=== PATIENT | male | born 1990 | race Caucasian/White ===

== ENCOUNTER 2019-12-04 23:41 | Emergency (ER) | payer SELFPAY ==
[2019-12-04 23:40] VITALS: BP 146/91; PULSE 85; RESP 25; TEMP 37.3; O2SAT 96
--- NOTE | 2019-12-04 23:43 | ED.OVERDOSE ---
HPI - Overdose General Chief Complaint: Overdose Stated Complaint: UNRESPONSIVE Time Seen by Provider: 12/04/19 23:43 Source: patient and EMS Mode of arrival: EMS Limitations: clinical condition History of Present Illness HPI Narrative: Patient is a 29-year-old male who presented via EMS for possible overdose. EMS was called by [facility]dem[facility] for patient who was unresponsive at a hotel. EMS arrived on scene to [facility] where the patient was sitting up in bed, not unresponsive, but quite altered and unable to provide history aside from his name. Per longtime girlfriend who called over the phone to EMS, states that patient had been possibly using drugs with a unknown homeless person 2 days ago. Patient reports history of opiate use 2 days ago. He denies other drugs or alcohol use. PT is alert and oriented to person, place,and to time. He denies any complaints. Related Data Allergies Allergy/AdvReac Type Severity Reaction Status Date / Time No Known Allergies Allergy Verified 12/04/19 23:47 Review of Systems Review of Systems: Narrative: CONSTITUTIONAL: Denies fever CARDIOVASCULAR: Denies chest pain RESPIRATORY: Denies cough or dyspnea. GASTROINTESTINAL: Denies abdominal pain SKIN: Denies rash MUSCULOSKELETAL: Denies back pain NEUROLOGIC: Denies headache PMFSH Past Medical History Medical History (Updated 12/05/19 @ 02:38 by Yady Guzman MD) No pertinent past medical history Substance abuse Surgical History Surgical History (Updated 12/05/19 @ 00:09 by Yady Guzman MD) Hx of cholecystectomy Social History Social History (Updated 12/05/19 @ 00:09 by Yady Guzman MD) Smoking status: Current every day smoker Alcohol intake: current Substance use: current Substance use type: heroin Living arrangements: homeless Gender identity (if verbalized by the patient): Male Exam Narrative: Exam Narrative: GENERAL: Awake, alert, conversant, intoxicated HEAD: Normocephalic, atraumatic. EYES: PERRLA and EOMI. ENT: Nares clear, no rhinorrhea or epistaxis. Mucous membranes moist. NECK: Supple. CHEST: No respiratory distress, breathing even and non labored HEART: Regular rate, sinus rhythm ABDOMEN:Non distended, non tender EXTREMITIES: Normal range of motion. No edema. Track marking to right forearm. SKIN: Warm, dry, no rash. NEURO: Moving all extremities spontaneously, able to follow commands, alert and oriented to person, place, and to time. Can state the President. Ambulatory with a narrow based, steady gait. Course Vital Signs Vital signs: Vital Signs Temperature 37.3 C 12/04/19 23:40 Pulse Rate 85 12/04/19 23:40 Respiratory Rate 25 H 12/04/19 23:40 Blood Pressure 146/91 H 12/04/19 23:40 Pulse Oximetry 96 12/04/19 23:40 Temperature 37.3 C 12/04/19 23:40 Pulse Rate 90 12/05/19 02:43 Respiratory Rate 17 12/05/19 02:43 Blood Pressure 116/70 12/05/19 02:43 Pulse Oximetry 96 12/05/19 02:43 MDM - Overdose MDM Narrative Medical decision making narrative: Patient presented with concern for drug overdose. Patient is alert and oriented to person, place, to time at the time of assessment. He is denying any pain. He does appear slightly intoxicated, although patient is ambulatory with a narrow-base steady gait. He is refusing any lab draw. He does allow us to get an EKG. He is refusing any imaging. I was able to get [facility] patient to allow us to monitor him over the period of 3 hours over which she did well in the ER without acute complaints. Vital signs remained stable. He remained ambulatory. He again refused to allow any blood draw or imaging studies. Patient is aware of making these decisions and has the capacity to understand the risk of or deterioration regarding his substance abuse or possible concurrent medical ailment which he will not allow me to investigate. Patient then left AGAINST MEDICAL ADVICE. Differential Diagnosis Differenti
[2019-12-05 00:01] VITALS: RESP 20
--- NOTE | 2019-12-05 00:01 | ECG_ITS ---
Measurements Intervals [place] Rate: 64 P: 17 OR: 159 QRS: 85 QRSD: 89 T: -37 QT: 424 QTc: 438 Interpretive Statements SINUS RHYTHM WITH SINUS ARRHYTHMIA ATRIAL PREMATURE COMPLEX BORDERLINE ST-T WAVE ABNORMALITY- ANTEROLAT/INF LEADS BASELINE ARTIFACT- AVR, AVL, AVF, V3-V4 BORDERLINE ECG Electronically Signed On 12-05-2019 7:31:14 CDT by Kali Kinney D.O.
--- NOTE | 2019-12-05 00:28 | PC.NURSE ---
Pt refusing IV fluids, blood draw and CT scan. ERP notified.
[2019-12-05 01:48] VITALS: BP 121/73; PULSE 98; RESP 20; O2SAT 97
--- NOTE | 2019-12-05 01:50 | PC.NURSE ---
Spoke w/ poison control. recommends supportive care since patient is refusing all tests.
[2019-12-05 02:43] VITALS: BP 116/70; PULSE 90; RESP 17; O2SAT 96
== END 2019-12-05 02:40 | disposition left against medical advice (07) ==
PROVIDERS: Emergency Provider Emergency Medicine
DX: T50.901A Poisoning by unspecified drugs, medicaments and biological substances, accidental (unintentional), initial encounter (principal); F17.200 Nicotine dependence, unspecified, uncomplicated; I49.1 Atrial premature depolarization; R94.31 Abnormal electrocardiogram [ECG] [EKG]
CPT/HCPCS: 93005; 99284